=== PATIENT | male | born 1940 | race Caucasian/White ===

== ENCOUNTER 2017-04-11 09:56 | Outpatient (CLI) ==
--- NOTE | 2017-04-11 10:45 | DI ---
EXAM: Three views of the left fingers. History: Left finger trauma. Findings: No acute fracture or dislocation. Moderate to severe narrowing of the first, second and th ird MCP joints. Moderate narrowing of the interphalangeal joints. Moderate narrowing of the first c arpal metacarpal joint. There are osteophytes. Impression: No acute osseous abnormality. Arthritis.
== END 2017-04-11 09:57 | disposition home or self-care (01) ==
LOC: RAD 09:56
PROVIDERS: ATTEND Family Medicine
DX: S69.92XA Unspecified injury of left wrist, hand and finger(s), initial encounter (principal)

== ENCOUNTER 2018-06-22 07:21 | Day surgery (SDC) ==
[2018-06-22] MEDS ORDERED: DIPRIVAN 20 ML VIAL IVP ONE (08:45)
[2018-06-22] MEDS ORDERED: VERSED ONE (08:45)
[2018-06-22 15:30] VITALS: BP 132/56
--- NOTE | 2018-06-23 08:21 | OP ---
PROCEDURE: COLONOSCOPY TO THE CECUM. ENDOSCOPIST: Frederic MOORE M.D. INDICATION: CHANGE IN BOWEL HABITS. INSTRUMENT: [id number]. MEDICATION: PER ANESTHESIA. PROCEDURE: The patient was positioned for colonoscopy. The digital rectal exam was negative. The colonoscope was inserted through the anus and advanced to the cecum. The cecum was identified using the ileocecal valve and the appendiceal orifice as landmarks. The scope was slowly withdrawn through an adequately prepped colon. [place] Bowel Prep Score equals 9. Left sided diverticulosis was noted. The retroflex exam was otherwise normal. No evidence for inflammatory change, polyp or mass on his exam. The patient tolerated the procedure without immediate complication. Withdraw time 7 minutes and 37 seconds. PLAN: 1. Repeat colonoscopy for surveillance in 5 years CC: Dr. Nick ROBISON
== END 2018-06-22 10:30 | disposition home or self-care (01) ==
LOC: SURG 07:21
PROVIDERS: ATTEND Internal Medicine Gastroenterology
DX: R19.4 Change in bowel habit (principal); K57.90 Diverticulosis of intestine, part unspecified, without perforation or abscess without bleeding

== ENCOUNTER 2022-10-03 11:21 | Observation (INO) ==
[2022-10-03 11:50] LABS: BASOPHILS % (AUTO) 0.3 % (0.0-3.0); EOSINOPHILS # (AUTO) 0.1 K/ul (0.0-0.7); HEMATOCRIT 33.2 % (42.0-52.0); HEMOGLOBIN 10.9 g/dl (14.0-18.0); IMMATURE GRANULOCYTE % (AUTO) 0.4 % (0.0-5.0); LYMPHOCYTES # (AUTO) 1.5 K/uL (0.60-3.4); MEAN CORPUSCULAR HEMOGLOBIN 33.3 pg (27.0-31.0); MEAN CORPUSCULAR HGB CONC 32.8 (31.8-35.4); MEAN CORPUSCULAR VOLUME 101.5 fl (80.0-94.0); MONOCYTES # (AUTO) 0.5 K/uL (0.4-2.0); MONOCYTES % (AUTO) 7.3 (0-10); NEUTROPHILS # (AUTO) 4.9 K/ul (2.0-6.9); PLATELET COUNT 204 10^3/uL (140-440); RDW COEFFICIENT OF VARIATION 12.9 % (11.6-14.8); RED BLOOD COUNT 3.27 10^6/ul (4.70-6.10); WHITE BLOOD COUNT 7.01 K/ul (4.2-10.2)
--- NOTE | 2022-10-03 12:01 | ED.PDOC ---
General ED Provider: Dr. SANTANA JACOBS DO Chief Complaint: Fall Stated Complaint: Patient is a 82 yo M here for fall Patient arrives afebrile and vitally stable by POV with ex- Patient has 2 years of cognitive decline Patient alert and oriented to self and location onlyy, ex states this is baseline He is still driving He lives alone Ex went to see him they are still friends and noticed he had a bruise on his R forehead Patient states he tripped, he could not elaborate more He is pleasant follow ing commands Patient reports he has been passing out They deny hx of ACS or dysrhythmia Patient speaking in full sentences on room air spo2 95% Ex reports they have asked Dr. Thomas for help and he has not planned for patients dementia Patient denies chest pain or dysuria Time Seen by Provider: 10/03/22 11:23 Information Source: Patient Primary Care Provider: REINA THOMAS Nursing and Triage Documentation Reviewed and Agree: Yes Does patient meet sepsis criteria?: No System Inflammatory Response Syndrome: Not Applicable Sepsis Protocol: For patient's 13 years and over: Temp is 96.8 and below OR 101 and greater Pulse >90 BPM Resp >20/minute Acutely Altered Mental Status Are patient's symptoms suggestive of a new infection, such as: -Pneumonia -Skin, Soft Tissue -Endocarditis -UTI -Bone, Joint Infection -Implantable Device -Acute Abdominal Infection -Wound Infection -Meningitis -Blood Stream Catheter Infection -Unknown Review of Systems Review Of Systems Constitutional: Denies Chills, Fever or Weakness Eyes: Denies Blindness or Vision change Ears, Nose, Mouth, Throat: Denies Ear pain, Ear discharge or Nose pain Respiratory: Denies Cough or Short of air Cardiac: Denies Chest pain or Irregular heart rate GI: Denies Abdomen distended or Abdominal pain : Denies Burning or Discharge Musculoskeletal: Denies Back pain or Joint pain Skin: Reports Other (r forehead bruise); Denies Bruising or Rash Neurological: Reports Cognitive dysfunction; Denies Anxiety or Depressed Endocrine: Reports No symptoms Hematologic/Lymphatic: Reports No symptoms All Other Systems: Reviewed and Negative Physical Exam Physical Exam Appearance: Reports Well-appearing and Well-nourished Ill-appearing: Not Applicable Pain Distress: Not Applicable Eyes: Reports ABIEL, EOMI and Other (no hyphema) ENT: Reports Ears normal, Nose normal and Other (no beckham sign, Uvula midline, no septal hematoma, R forehead small 2x1 cm ecchymosis, no laceration, no crepitus) Neck: Supple Respiratory: Reports Airway patent and Breath sounds clear Cardiovascular: Reports RRR and Pulses normal GI/: Reports Soft and Nontender Musculoskeletal: Reports Normal strength and ROM intact; Denies No edema Skin: Reports Warm, Dry and Other (R middle finger with dried blood no obvious laceration) Neurological: Reports Sensation intact and Motor intact Psychiatric: Reports Affect appropriate and Mood appropriate Interpretation Radiology Interpretation Radiology Interpretation By: ED Physician Radiology Results: Negative Exam Interpreted: CXR Xray Comments: No pneumothorax, no gross ocnsolidaiton no pleural effusions, previous ster Radiology Interpretation By: ED Physician Radiology Results: Negative Exam Interpreted: Other (L hand XR) Xray Comments: No acute cross fracture, dislocaiton or FB EKG Interpretation Time of EKG #1: 11:38 Rate: Normal Rhythm: Sinus Ectopy: None [place]: NL ST Segment: Normal Interpretation: rate 69 no stemi, artifact from movement V4 EKG Interpretation By: ED Physician Critical Care Note Critical Care Note Total Critical Care Time (mins): 0 Course Course 10/03/22 11:45 10/03/22 11:45 Orders, Labs, Meds: Lab Review 10/03/22 10/03/22 11:45 12:28 WBC 7.01 RBC 3.27 L Hgb 10.9 L Hct 33.2 L MCV 101.5 H MCH 33.3 H MCHC 32.8 RDW Coeff of Gerber 12.9 Plt Count 204 Immature Gran % (Auto) 0.4 Neut % (Auto) 70.0 Lymph % (Auto) 21.0 [place] % (Auto) 7.3 Eos % (Auto) 1.0 Baso % (Auto) 0.3 Neut # (Auto) 4.9 Lymph # (Auto) 1.5 [place] # (Auto) 0.5 Eos # (Auto) 0.1 Baso # (Auto) 0.0 Immature Gran # (Auto) 0.0 Sodium 137.3 Potassium 3.53 Chloride 104.3 Carbon Dioxide 29.0 Anion Gap 7.53 BUN 29.4 H Creatinine 1.07 Estimated GFR (MDRD) 66.00 BUN/Creatinine Ratio 27.47 Glucose 142.9 H Calcium 8.75 Total Bilirubin 0.47 AST 52.8 ALT 30.9 Alkaline Phosphatase 74.6 Troponin I 0.021 Total Protein 7.15 Albumin 4.11 Globulin 3.04 Albumin/Globulin Ratio 1.35 D-Dimer 990.73 H Urine Color Dark yellow Urine Clarity Clear Urine pH 5.5 Ur Specific [place] >=1.030 Urine Protein Negative Urine Glucose (UA) Negative Urine Ketones Negative Urine Blood Negative Urine Nitrite Negative Urine Bilirubin Negative Urine Urobilinogen 0.2 Ur Leukocyte Esterase Negative Orders Category Date Time Status EKG-(ED ONLY) Stat CARDIO 10/03/22 11:34 Completed NPO REMINDER: IMAGING ONCE CARE 10/03/22 12:35 Active CBC W/ AUTO DIFF Stat LAB 10/03/22 11:45 Completed COMPREHENSIVE METABOLIC PANEL Stat LAB 10/03/22 11:45 Completed D-DIMER Stat LAB 10/03/22 11:45 Completed TROPONIN I Stat LAB 10/03/22 11:45 Completed UA [URINALYSIS C & S IF INDICATED] Stat LAB 10/03/22 12:[address] CHEST PE PROTOCOL Stat RADS 10/03/22 12:[address] HEAD W/O CONTRAST Stat RADS 10/03/22 11:34 Completed CXR [CHEST, 2 VIEWS PA & LAT] Stat RADS 10/03/22 11:34 Completed HAND, LEFT 3 VIEWS Stat RADS 10/03/22 11:54 Completed Vital Signs: Temp Pulse Resp BP Pulse Ox 10/03/22 11:26 98.8 F 77 20 148/73 H 95 pending labs and imaging Head ct and CXR, and L hand xr grossly normal, PE study ordered for elevated d dimer/syncope CT PE negative-concerns for scaring vs infection Dr. Thomas paged I would like to plan disposition for his patient with him MDM: Patient is a 82 yo M here for fall and cognitive decline Patient afebrile and vitally stable Hx from patient and ex chart reivew by me 3+ labs and 3 images reviewed by me Consults to Dr. Thomas and Hospitalist PAC Cowsert I am concerned for syncope, I also think patient needs help with ADL WDX: Fall, anemia, elevated d dimer, syncope, cognitive decline acute on chronic moderate complexity DDX: I considered PA, Sepsis, Stemi but these are less likely Patient sent to OBS Patient and amenable to plan Risks benefits and alternatives discussed All questions answered SDOH: Patient has PCP and specialist clinic support, will improve with risk stratification for syncope and falls this stay Medium risk for SF/Cymro syncope rule Discharge Plan Discharge Patient Disposition: PLACED OBSERVATION Discharge Problem: Bruise, Acute cognitive decline, Anemia, D-dimer, elevated, Fall, Syncope Did you review [place] RESPIRATORY SUPERVISOR for ALL controlled substances?: Not Applicable ED Provider: SANTANA JACOBS Physician Progress Note: []
[2022-10-03 12:03] LABS: ALANINE AMINOTRANSFERASE 30.9 U/L (0-50); ALBUMIN 4.11 g/dL (3.5-5.0); ALKALINE PHOSPHATASE 74.6 U/L (56-119); ASPARTATE AMINO TRANSFERASE 52.8 U/L (17-59); BILIRUBIN,TOTAL 0.47 mg/dL (0.2-1.3); BLOOD UREA NITROGEN 29.4 mg/dL (9-20); CALCIUM 8.75 mg/dL (8.4-10.2); CHLORIDE 104.3 mmol/L (98-107); CREATININE 1.07 mg/dL (0.60-1.10); GLUCOSE 142.9 mg/dL (74-106); POTASSIUM 3.53 mmol/L (3.5-5.1); SODIUM 137.3 mmol/L (134.5-145); TOTAL PROTEIN 7.15 g/dL (6.3-8.2)
--- NOTE | 2022-10-03 12:05 | DI ---
EXAM: TWO VIEW CHEST. HISTORY: Syncope. COMPARISON: None. TECHNIQUE: Frontal and lateral views of the chest. FINDINGS: Postoperative changes of prior CABG. Lungs: There is hyperexpansion of the lungs with flattening of the diaphragms.The lungs are clear wit hout consolidation or effusion. There are no suspicious nodules. There is no pneumothorax. Cardiovascular: The heart size and pulmonary vasculature is normal.. The aorta is unremarkable. [place]acey/Mediastinum: Normal. Osseous structures. Normal for age. IMPRESSION: No acute pulmonary disease. Hyperexpansion of the chest. Findings are consistent with chronic obstructive pulmonary disease.
[2022-10-03 12:14] LABS: TROPONIN I 0.021 ng/ml (0.0000-0.120)
--- NOTE | 2022-10-03 12:31 | DI ---
EXAM: LEFT HAND RADIOGRAPH (3 VIEW) TECHNIQUE: Three views. Frontal, lateral, and oblique. HISTORY: Laceration distal second finger Left hand pain. COMPARISON: None. FINDINGS: There is no fracture or dislocation. 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 Degenerative changes noted in the back carpal phalangeal joints of the first second and third fingers . There is loss of the joint space subchondral degenerative cystic change. Sclerosis of the opposin g articular surfaces is noted. Degenerative change in the first carpal-metacarpal joint. Degenerative changes present in the interphalangeal joint of the left thumb and DIP joint of the seco nd and third fingers. There is no evidence of radiopaque foreign body in the distal is second finger IMPRESSION: 1. Osteoarthritis. 2. 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
--- NOTE | 2022-10-03 12:32 | CT ---
EXAM: CT OF THE HEAD WITHOUT CONTRAST. HISTORY: Fall. Bruising to the forehead. COMPARISON: 08/18/2012 TECHNIQUE: Contiguous axial images at 5 mm intervals were obtained from the base of the skull to the vertex of the calvarium. No contrast was given. FINDINGS: Extra-axial spaces: The CSF contiaing spaces are diffusely enlarged consistent with atrophy.There ar e no extraaxial fluid collections. Hemorrhage: None Cerebral Parenchyma: There are hypodensities in the periventricular white matter and deep white matte r. These findings are non-specific but can be seen with chronic ischemic changes from small vessel d isease.Orozco-white differentiation is normal. Cerebellum: Mild atrophic changes.. Masses/Mass effect: None. There is no midline shift. Vasculature: Calcifications are seen in the carotid and vertebral arteries. Osseus Structures: Normal. Soft tissues/Sinuses: Normal. IMPRESSION: 1. Chronic age related changes. 2. No acute intracranial hemorrhage. All CT scans are performed using dose optimization techniques as appropriate to the performed exam an d include at least one of the following: Automated exposure control, adjustment of the mA and/or kV according t o size, and the use of iterative reconstruction technique.
[2022-10-03 12:34] LABS: BILIRUBIN,URINE Negative (NEGATIVE); CLARITY,URINE Clear (CLEAR); COLOR,URINE DARK YELLOW (YELLOW); GLUCOSE, URINE (UA) Negative (NEGATIVE); KETONES,URINE Negative (NEGATIVE); LEUKOCYTE ESTERASE ,URINE Negative (NEGATIVE); NITRITE,URINE Negative (NEGATIVE); PH,URINE 5.5 (5-9); PROTEIN,URINE Negative (NEGATIVE); URINE, BLOOD Negative (NEGATIVE); UROBILINOGEN,URINE 0.2 (0.2)
--- NOTE | 2022-10-03 14:07 | CT ---
CTA OF THE CHEST WITH CONTRAST HISTORY: Elevated D-dimer. Syncope. TECHNIQUE: Precontrast images were obtained for timing of the contrast bolus. Following administrat ion of iodinated IV contrast, axial tomographic sections were obtained from the neck base through the lung bases. Coronal and 3D coronal MIP reformats were performed. Automated CT dose reduction techn ique was utilized. COMPARISON: None. FINDINGS: LINES AND DEVICES: None. GREAT VESSELS: No gross pulmonary embolism. No thoracic aortic aneurysm or dissection. There are hea vy atheromatous calcifications of the thoracic aorta. LYMPH NODES: Normal. MEDIASTINUM: Normal heart size. No pericardial effusion. Sternotomy and CABG changes with CASTRO. AIRWAYS AND LUNGS: Clear airways. No infiltrate or consolidation. There is scattered subpleural inter stitial thickening in the bilateral mid-lungs posteriorly and laterally, nonspecific. Areas of centr ilobular interstitial thickening noted in the lung apices bilaterally which may represent scarring ve rsus minimal infectious or inflammatory infiltrate. PLEURA: Normal. No effusion. No pneumothorax. CHEST WALL/BREAST: Normal. UPPER ABDOMEN: Normal, limited evaluation. BONES: No acute findings. IMPRESSION: 1. No acute findings. Negative for acute pulmonary embolism. 2. Nonacute ancillary findings as above, see above report. All CT scans are performed using dose optimization techniques as appropriate to the performed exam an d include at least one of the following: Automated exposure control, adjustment of the mA and/or kV according t o size, and the use of iterative reconstruction technique.
[2022-10-03] MEDS ORDERED: TYLENOL PO PRN (15:03)
--- NOTE | 2022-10-03 15:12 | PCM ---
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 Patient states that he was sitting and then stood up to go walk and his "legs gave out on him" and he fell hitting his head. He does not believe that he lost consciousness this morning. He did also have a fall last week with a similar scenario. At one point he states that he may have lost consciousness for a few seconds but he just is not sure. He denies any chest pain or dizziness when these events occur. He does not take a blood thin ner. His whom he is from came to visit and noticed that he had a contusion on his forehead and encouraged him to get evaluated. He has been having memory issues for the past 2 years. The patient admits this and is aware that he has trouble with his memory. It is very frustrating for him. He does not currently take anything for it. He is oriented to person place and time but does have trouble recalling specifics about recent and past events. He does sometimes repeat himself as well within a few minutes. His goals are to remain at home and he is reluctant but open to discussing home health. [facility]. Case Discussed With Case Discussed With: Patient's case was discussed with the ER Physicians, Dr. Leyva. [facility] Medical History Angina pectoris I20.9 - Angina pectoris, unspecified (ICD-10) Back pain M54.9 - Dorsalgia, unspecified (ICD-10) BPH (benign prostatic hyperplasia) N40.0 - Benign prostatic hyperplasia without lower urinary tract symptoms (ICD-10) Cognitive and behavioral changes R41.89 - Other symptoms and signs involving cognitive functions and awareness (ICD-10) R46.89 - Other symptoms and signs involving appearance and behavior (ICD-10) GERD (gastroesophageal reflux disease) K21.9 - Gastro-esophageal reflux disease without esophagitis (ICD-10) Hypertension I10 - Essential (primary) hypertension (ICD-10) Family History FATHER Hypertension Social History Smoking and tobacco status: Former smoker Tobacco: How many years used: 40 Second hand smoke exposure: No Alcohol intake: former Substance use type: does not use and opiates Counseling given: No (Active script for opiates) Allergies Allergies Allergy/AdvReac Type Severity Reaction Status Date / Time No Known Allergies Allergy Unverified 10/03/22 12:17 Current Medications Home Medications ascorbic acid (vitamin C) 1,000 mg tablet 1,000 mg PO DAILY 12/04/15 [History Confirmed 10/03/22 Last Taken 06/18/18 08:00] aspirin 81 mg tablet,delayed release (Ecotrin Low Strength) 81 mg PO DAILY 12/04/15 [History Confirmed 10/03/22 Last Taken 06/18/18 08:00] atorvastatin 20 mg tablet (Lipitor) 20 mg PO BEDTIME 12/04/15 [History Confirmed 10/03/22 Last Taken 06/18/18 08:00] chlorthalidone 25 mg tablet 25 mg PO DAILY 12/04/15 [History Confirmed 10/03/22 Last Taken 06/18/18 08:00] enalapril maleate 20 mg tablet 20 mg PO BID 12/04/15 [History Confirmed 10/03/22 Last Taken 06/18/18 08:00] hydrocodone 5 mg-acetaminophen 325 mg tablet 1 ea PO DAILY 12/04/15 [History Confirmed 10/03/22 Last Taken 12/01/15] isosorbide mononitrate 30 mg tablet,extended release 24 hr 60 mg PO DAILY 12/04/15 [History Confirmed 10/03/22 Last Taken 06/18/18 08:00] metoprolol succinate 50 mg tablet,extended release 24 hr 50 mg PO BID 12/04/15 [History Confirmed 10/03/22 Last Taken 06/18/18 08:00] multivitamin 1 cap PO DAILY 12/04/15 [History Confirmed 10/03/22 Last Taken 06/18/18 07:00] nitroglycerin 0.4 mg sublingual tablet (Nitrostat) 0.4 mg sublingual Q5M PRN chest pain 12/04/15 [History Confirmed 10/03/22 Last Taken 06/18/18 07:00] omeprazole 20 mg capsule,delayed release 20 mg PO QDAC 12/04/15 [History Confirmed 10/03/22 Last Taken 06/18/18 06:00] tamsulosin 0.4 mg capsule 0.4 mg PO DAILY 12/04/15 [History Confirmed 10/03/22 Last Taken 06/18/18 08:00] Home Acetaminophen (Acetaminophen 325 Mg Tablet) 650 mg PO Q4H PRN PRN Reason: Mild Pain Aspirin (Aspirin 81 Mg Tablet.) 81 mg PO DAILY [facility] Atorvastatin Calcium (Atorvastatin Calcium 20 Mg Tablet) 20 mg PO BEDTIME [facility] Chlorthalidone (Chlorthalidone 25 Mg Tablet) 25 mg PO DAILY [facility] Donepezil HCl (Donepezil Hcl 10 Mg Tablet) 5 mg PO DAILY [facility] Last Admin: 10/03/22 16:45 Dose: 5 mg Enalapril Maleate (Enalapril Maleate 20 Mg Tablet) 20 mg PO BID [facility] Enoxaparin Sodium (Enoxaparin Sodium 40 Mg/0.4 Ml Syr) 40 mg SUBCUT DAILY [facility] Isosorbide Mononitrate (Isosorbide Mononitrate 30 Mg Tab.Er.24h) 60 mg PO DAILY [facility] Metoprolol Succinate (Metoprolol Succinate 50 Mg Tab.Er.24h) 50 mg PO BID [facility] Omeprazole (Omeprazole 20 Mg Capsule.) 20 mg PO QDAC [facility] Tamsulosin HCl (Tamsulosin Hcl 0.4 Mg Cap.Er.24h) 0.4 mg PO DAILY [facility] Review of Systems Constitutional: Denies Fever, Fatigue, Chills or Weakness Head: Reports Normocephalic; Denies Atraumatic (Right forehead contusion) Eyes: Denies Vision Changes Ears: Denies Pain Nose: Denies Post Nasal Drip or Congestion Mouth: Denies Sores Throat: Denies Sore Throat or Difficulty Swallowing Cardiovascular: Denies Chest pain, Chest Pressure or Edema Respiratory: Denies Cough or Shortness of air Gastrointestinal: Denies Nausea, Vomiting, Diarrhea or Abdominal pain Genitourinary: Denies Dysuria or Hematuria Dermatologic: Denies Rashes Neurological: Reports Memory Loss, Problems with walking and Other (+near syncope, multiple falls ); Denies Headache or Dizziness Psychiatric: Denies Depression, Anxiety or Suicidal Physical examination Most Recent Vital Signs: Most Recent Vital Signs Temperature 98.8 F 10/03/22 11:26 Temperature Source Infrared 10/03/22 11:26 Pulse Rate 77 10/03/22 11:26 Respiratory Rate 20 10/03/22 11:26 Blood Pressure 148/73 H 10/03/22 11:26 O2 Sat by Pulse Oximetry 95 10/03/22 11:26 Height 6 ft 10/03/22 11:26 Weight 158 lb 6 oz 10/03/22 11:26 Appearance: Positive Well-appearing, Well-nourished, No Apparent Distress and Alert and Oriented x3 Skin: Positive [place], Warm and Good Turgor; Negative Rashes HEENT: Positive Normocephalic and Oral Mucous Moist; Negative Atraumatic (+Right forehead contusion noted, no laceration. ) Neck: Positive Supple and Midline Trachea Chest/Lungs: Positive Symmetrical With Equal Breath Sounds and Clear to Auscultation Bilaterally; Negative Rales, Rhonci or Wheezes Heart: Positive RRR GI/: Positive Soft, Nontender, Bowel Sounds Normal and No Distention Musculoskeletal: Positive Other (+ Generalized weakness of upper and lower ext. ) Extremities: Positive Signs of Trauma (+Left index finger injury, freshly wrapped in gauze. Right forehead contusion. ) Neurological: Positive Cranial Nerves Intact, Alert and Oriented Psychiatric: Positive Oriented x4, Appropriate Mood and Appropriate Affect; Negative Good Short-Term Recall or Good Long-Term Recall Additional Findings: Patient is able to answer orientation questions appropriately, however, he has difficulty recalling recent and past events. He is aware he is having memory issues. Labs This Visit Labs This Visit: Labs This Visit 10/03/22 10/03/22 11:45 12:28 WBC 7.01 RBC 3.27 L Hgb 10.9 L Hct 33.2 L MCV 101.5 H MCH 33.3 H MCHC 32.8 RDW Coeff of Gerber 12.9 Plt Count 204 Immature Gran % (Auto) 0.4 Neut % (Auto) 70.0 Lymph % (Auto) 21.0 Amelia % (Auto) 7.3 Eos % (Auto) 1.0 Baso % (Auto) 0.3 Neut # (Auto) 4.9 Lymph # (Auto) 1.5 Amelia # (Auto) 0.5 Eos # (Auto) 0.1 Baso # (Auto) 0.0 Immature Gran # (Auto) 0.0 Sodium 137.3 Potassium 3.53 Chloride 104.3 Carbon Dioxide 29.0 Anion Gap 7.53 BUN 29.4 H Creatinine 1.07 Estimated GFR (MDRD) 66.00 BUN/Creatinine Ratio 27.47 Glucose 142.9 H Calcium 8.75 Total Bilirubin 0.47 AST 52.8 ALT 30.9 Alkaline Phosphatase 74.6 Troponin I 0.021 Total Protein 7.15 Albumin 4.11 Globulin 3.04 Albumin/Globulin Ratio 1.35 D-Dimer 990.73 H Urine Color Dark yellow Urine Clarity Clear Urine pH 5.5 Ur Specific Melba >=1.030 Urine Protein Negative Urine Glucose (UA) Negative Urine Ketones Negative Urine Blood Negative Urine Nitrite Negative Urine Bilirubin Negative Urine Urobilinogen 0.2 Ur Leukocyte Esterase Negative Imaging Imaging: EXAM: TWO VIEW CHEST. HISTORY: Syncope. COMPARISON: None. TECHNIQUE: Frontal and lateral views of the chest. FINDINGS: Postoperative changes of prior CABG. Lungs: There is hyperexpansion of the lungs with flattening of the diaphragms.The lungs are clear without consolidation or effusion. There are no suspicious nodules. There is no pneumothorax. Cardiovascular: The heart size and pulmonary vasculature is normal.. The aorta is unremarkable. [place]acey/Mediastinum: Normal. Osseous structures. Normal for age. IMPRESSION: No acute pulmonary disease. Hyperexpansion of the chest. Findings are consistent with chronic obstructive pulmonary disease. EXAM: LEFT HAND RADIOGRAPH (3 VIEW) TECHNIQUE: Three views. Frontal, lateral, and oblique. HISTORY: Laceration distal second finger Left hand pain. COMPARISON: None. FINDINGS: There is no fracture or dislocation. 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 Degenerative changes noted in the back carpal phalangeal joints of the first second and third fingers. There is loss of the joint space subchondral degenerative cystic change. Sclerosis of the opposing articular surfaces is noted. Degenerative change in the first carpal-metacarpal joint. Degenerative changes present in the interphalangeal joint of the left thumb and DIP joint of the second and third fingers. There is no evidence of radiopaque foreign body in the distal is second finger IMPRESSION: 1. Osteoarthritis. 2. 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 Syncope. TECHNIQUE: Precontrast images were obtained for timing of the contrast bolus. Following administration of iodinated IV contrast, axial tomographic sections were obtained from the neck base through the lung bases. Coronal and 3D coronal MIP reformats were performed. Automated CT dose reduction technique was utilized. COMPARISON: None. FINDINGS: LINES AND DEVICES: None. GREAT VESSELS: No gross pulmonary embolism. No thoracic aortic aneurysm or dissection. There are heavy atheromatous calcifications of the thoracic aorta. LYMPH NODES: Normal. MEDIASTINUM: Normal heart size. No pericardial effusion. Sternotomy and CABG changes with CASTRO. AIRWAYS AND LUNGS: Clear airways. No infiltrate or consolidation. There is scattered subpleural interstitial thickening in the bilateral mid-lungs posteriorly and laterally, nonspecific. Areas of centrilobular interstitial thickening noted in the lung apices bilaterally which may represent scarring versus minimal infectious or inflammatory infiltrate. PLEURA: Normal. No effusion. No pneumothorax. CHEST WALL/BREAST: Normal. UPPER ABDOMEN: Normal, limited evaluation. BONES: No acute findings. IMPRESSION: 1. No acute findings. Negative for acute pulmonary embolism. 2. Nonacute ancillary findings as above, see above report. EXAM: CT OF THE HEAD WITHOUT CONTRAST. HISTORY: Fall. Bruising to the forehead. COMPARISON: 08/18/2012 TECHNIQUE: Contiguous axial images at 5 mm intervals were obtained from the ba se of the skull to the vertex of the calvarium. No contrast was given. FINDINGS: Extra-axial spaces: The CSF contiaing spaces are diffusely enlarged consistent with atrophy.There are no extraaxial fluid collections. Hemorrhage: None Cerebral Parenchyma: There are hypodensities in the periventricular white matter and deep white matter. These findings are non-specific but can be seen with ch ronic ischemic changes from small vessel disease.Orozco-white differentiation is normal. Cerebellum: Mild atrophic changes.. Masses/Mass effect: None. There is no midline shift. Vasculature: Calcifications are seen in the carotid and vertebral arteries. Osseus Structures: Normal. Soft tissues/Sinuses: Normal. IMPRESSION: 1. Chronic age related changes. 2. No acute intracranial hemorrhage. Review Statement Review Statement: I have independently reviewed and interpreted the labs/EKGs/imaging that were ordered by the ER provider. I have reviewed all outside records that are available currently in our EMR including imaging/notes/labs from previous visits. Plan Plan: 1. Near syncope with multiple falls - Echo, carotid US, tele, check orthostats. Fall precautions. PT/OT. 2. Cognitive decline - Over past two years, will start aricept 5 mg daily. 3. Coronary artery disease - Continue home medications 4. Hypertension - Continue home meds 5. BPH - Continue home flomax 6. GERD - Continue home prilosec. DVT Prophylaxis: Lovenox Time Spent: Greater than 80 minutes spent with patient, 50% of the time spent with this patient was devoted to counseling and coordination of care. [facility] minutes spent discussing advance care planning. FULL CODE Admit to: Obs Discussed Plan of Care with Dr. Christian Wells. Medications Medication Orders: Medications Ordered Category Date Time Status Acetaminophen [Tylenol] Meds 10/03/22 15:03 Ordered 650 mg PO Q4H PRN Donepezil HCl [Aricept] Meds 10/03/22 16:00 Ordered 5 mg PO DAILY Enoxaparin Sodium [Lovenox] Meds 10/04/22 09:00 Ordered 40 mg SUBCUT DAILY
[2022-10-03 16:00] VITALS: BMI 21.6
--- NOTE | 2022-10-03 16:12 | US ---
EXAMINATION: CAROTID DOPPLER ULTRASOUND HISTORY: Near syncope. COMPARISON: None. TECHNIQUE: Multiple sonographic images were obtained of the bilateral carotid vasculature using hawk scale and color/spectral Doppler analysis. FINDINGS: Plaque distribution: Scattered echogenic plaque is seen throughout the common and internal carotid a rteries. Mild narrowing. Arterial velocities measured in centimeters per second. Right common carotid artery peak systolic velocity: 56 Right internal carotid artery peak systolic velocity: 108 Right internal carotid artery end diastolic velocity: 18 Right ICA/CCA ratio: 1.9 Right external carotid artery peak systolic velocity: 98 Left common carotid artery peak systolic velocity: 64 Left internal carotid artery peak systolic velocity: 91 Left internal carotid artery end diastolic velocity: 14 Left ICA/CCA ratio: 1.4 Left external carotid artery peak systolic velocity: 290 Vertebrals: - Right: Antegrade flow with normal waveform. - Left: Antegrade flow with normal waveform. Society of Radiologists in Ultrasound (SRU) consensus statement (Radiology 2003; 229:340-346. DOI 10 .[id number]/radiol.[id number]) was used to estimate internal carotid artery stenosis. IMPRESSION: 1. Mild, less than 50% stenosis of the right internal carotid artery. 2. Mild, less than 50% stenosis of the left internal carotid artery. 3. Right Vertebral Artery: Antegrade. 4. Left Vertebral Artery: Antegrade. 5. Increased velocity in the left external carotid artery suggestive of stenosis.
[2022-10-03] MEDS: ARICEPT PO SCH (16:45)
[2022-10-03] MEDS: VASOTEC PO SCH (20:48)
[2022-10-03] MEDS ORDERED: LIPITOR PO SCH (21:00)
[2022-10-03] MEDS ORDERED: TOPROL XL PO SCH (21:00)
[2022-10-04 01:49] VITALS: RESP 16; TEMP 97.9
[2022-10-04 05:32] LABS: BASOPHILS % (AUTO) 0.3 % (0.0-3.0); EOSINOPHILS # (AUTO) 0.1 K/ul (0.0-0.7); EOSINOPHILS % (AUTO) 1.5 % (0.0-7.0); HEMATOCRIT 35.4 % (42.0-52.0); IMMATURE GRANULOCYTE % (AUTO) 0.3 % (0.0-5.0); LYMPHOCYTES # (AUTO) 1.3 K/uL (0.60-3.4); LYMPHOCYTES % (AUTO) 17.9 (10.0-50.0); MEAN CORPUSCULAR HEMOGLOBIN 34.3 pg (27.0-31.0); MEAN CORPUSCULAR HGB CONC 33.9 (31.8-35.4); MEAN CORPUSCULAR VOLUME 101.1 fl (80.0-94.0); MONOCYTES # (AUTO) 0.6 K/uL (0.4-2.0); MONOCYTES % (AUTO) 8.4 (0-10); NEUTROPHILS # (AUTO) 5.3 K/ul (2.0-6.9); NEUTROPHILS % (AUTO) 71.6 % (42.2-75.2); PLATELET COUNT 215 10^3/uL (140-440); RDW COEFFICIENT OF VARIATION 12.6 % (11.6-14.8); WHITE BLOOD COUNT 7.41 K/ul (4.2-10.2)
[2022-10-04 05:48] LABS: ALANINE AMINOTRANSFERASE 28.3 U/L (0-50); ALBUMIN 3.68 g/dL (3.5-5.0); ALKALINE PHOSPHATASE 70.3 U/L (56-119); ASPARTATE AMINO TRANSFERASE 47.6 U/L (17-59); BILIRUBIN,TOTAL 0.57 mg/dL (0.2-1.3); BLOOD UREA NITROGEN 21.6 mg/dL (9-20); CALCIUM 8.47 mg/dL (8.4-10.2); CARBON DIOXIDE 32.7 mmol/L (22-30.0); CHLORIDE 103.8 mmol/L (98-107); CREATININE 0.94 mg/dL (0.60-1.10); GLUCOSE 96.6 mg/dL (74-106); POTASSIUM 3.56 mmol/L (3.5-5.1); SODIUM 136.4 mmol/L (134.5-145); TOTAL PROTEIN 6.55 g/dL (6.3-8.2)
[2022-10-04] MEDS ORDERED: PRILOSEC PO SCH (06:30)
[2022-10-04] MEDS ORDERED: ASPIRIN EC PO SCH (08:30)
[2022-10-04] MEDS ORDERED: LACTATED RINGERS 1,000 ML IV SCH ×2 (09:00)
[2022-10-04] MEDS ORDERED: FLOMAX PO SCH (09:00)
[2022-10-04] MEDS ORDERED: IMDUR PO SCH (09:00)
[2022-10-04] MEDS ORDERED: CHLORTHALIDONE PO SCH (09:00)
[2022-10-04] MEDS ORDERED: TOPROL XL PO SCH ×2 (09:00)
[2022-10-04] MEDS: LOVENOX SUBCUT SCH ×2 (09:02→10:01)
[2022-10-04] MEDS: ARICEPT PO SCH (09:03)
[2022-10-04] MEDS: VASOTEC PO SCH (09:03)
--- NOTE | 2022-10-04 11:03 | DCSUM ---
Admission Date Admission Date: 10/03/22 Discharge Date Discharge Date: 10/04/22 Admission Diagnosis Admission Diagnosis: 1. Near Syncope Discharge Diagnosis Discharge Diagnosis: 1. Syncope with multiple falls 2. Cognitive decline 3. Coronary artery disease s/p CABG 4. Hypertension 5. BPH 6. GERD 7. Chronic anemia 8. [facility] Provider Hospital Provider: PETR DE LEON PA-C, [facility] Primary Care Physician Primary Care Physician: REINA THOMAS Summary of History and Physical Summary of History and Physical: Patient is an 82-year-old male from home with past medical history of heart disease status post 5 vessel CABG, hypertension, GERD, BPH who presented to the ER for a fall this morning. Patient states that he was sitting and then stood up to go walk and his "legs gave out on him" and he fell hitting his head. He does not believe that he lost consciousness this morning. He did also have a fall last week with a similar scenario. At one point he states that he may have lost consciousness for a few seconds but he just is not sure. He denies any chest pain or dizziness when these events occur. He does not take a blood thinner. His whom he is from came to visit and noticed that he had a contusion on his forehead and encouraged him to get evaluated. He has been having memory issues for the past 2 years. The patient admits this and is aware that he has trouble with his memory. It is very frustrating for him. He does not currently take anything for it. He is oriented to person place and time but does have trouble recalling specifics about recent and past events. He does sometimes repeat himself as well within a few minutes. His goals are to remain at home and he is reluctant but open to discussing home health. In the ER patient had a CT head which was negative. D-dimer was elevated and a CTA of his chest was performed which was negative for PE or acute findings. Patient admitted to [facility] for completion of near syncope work-up. 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 He refused at that time to come into the hospital. Patient was noted to have mild bradycardia from 46- 60 overnight. He is on a beta-rachel metoprolol 50 twice a day. We will decrease this to 25 twice a day to improve his heart rate as it could be a risk factor for him falling. He was also noted to be mildly orthostatic. Fluids were given and this improved. He worked with therapy and did really well. has concerns about his memory. We did discuss starting Aricept and we will go ahead and start 5 mg daily. Discussed the expectations with this medication. It could be increased in a few weeks by PCP if it is thought to be beneficial. The is going to bring him home with her and their daughter is also coming to stay for the next week or so. Home health was offered but they declined at this time. They understand that his PCP could help arrange this if needed. is POA and she is in agreement with this plan of action. Echo was performed with no acute changes from prior. Continue follow-up with outpatient specialist as scheduled. Follow-up with PCP within 1 week. Patient is discharged with Holter monitor, results to PCP. Of note patient is still driving. Discussed with him that this is unfortunately dangerous for him and others. We encouraged him to keep his independence but this is a safety concern. He is understanding. has also gotten his keys and will not let him have them. Appearance: Pleasant, No Apparent Distress, Alert, Well-appearing and Well- nourished HEENT: MMM CVS: No Murmur, No Rubs and No Gallop Abdomen: Soft, Non-Tender and No Distention Respiratory: No Dyspnea Extremities: No Edema Vital Signs: Most Recent Vital Signs Temperature 97.9 F 10/04/22 06:00 Temperature Source Temporal Artery Scan 10/04/22 06:00 Temperature Source Infrared 10/03/22 11:26 Pulse Rate 62 10/04/22 07:32 Respiratory Rate 16 10/04/22 07:32 Blood Pressure 114/58 L 10/04/22 07:30 Blood Pressure Mean 79 10/04/22 06:00 Blood Pressure Left Arm 158/60 10/03/22 15:35 Blood Pressure Location Left Arm 10/04/22 07:30 Blood Pressure Position Standing 10/04/22 07:30 O2 Sat by Pulse Oximetry 99 10/04/22 06:00 Oxygen Delivery Method Room Air 10/04/22 07:32 Height 6 ft 10/03/22 15:35 Weight 159 lb 7 oz 10/03/22 15:35 Telemetry Type Remote Telemetry 10/04/22 07:00 Telemetry Monitoring Continues 10/04/22 07:00 Telemetry Heart Rate 57 L 10/04/22 07:00 EKG [place] Interval 0.18 10/04/22 07:00 EKG QRS Interval 0.08 10/04/22 07:00 Telemetry Strip Reading Sinus Bradycardia 10/04/22 07:00 Imaging: EXAM: TWO VIEW CHEST. HISTORY: Syncope. COMPARISON: None. TECHNIQUE: Frontal and lateral views of the chest. FINDINGS: Postoperative changes of prior CABG. Lungs: There is hyperexpansion of the lungs with flattening of the diaphragms.The lungs are clear without consolidation or effusion. There are no suspicious nodules. There is no pneumothorax. Cardiovascular: The heart size and pulmonary vasculature is normal.. The aorta is unremarkable. [place]acey/Mediastinum: Normal. Osseous structures. Normal for age. IMPRESSION: No acute pulmonary disease. Hyperexpansion of the chest. Findings are consistent with chronic obstructive pulmonary disease. EXAM: LEFT HAND RADIOGRAPH (3 VIEW) TECHNIQUE: Three views. Frontal, lateral, and oblique. HISTORY: Laceration distal second finger Left hand pain. COMPARISON: None. FINDINGS: There is no fracture or dislocation. 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 Degenerative changes noted in the back carpal phalangeal joints of the first second and third fingers. There is loss of the joint space subchondral degenerative cystic change. Sclerosis of the opposing articular surfaces is noted. Degenerative change in the first carpal-metacarpal joint. Degenerative changes present in the interphalangeal joint of the left thumb and DIP joint of the second and third fingers. There is no evidence of radiopaque foreign body in the distal is second finger IMPRESSION: 1. Osteoarthritis. 2. 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 Syncope. TECHNIQUE: Precontrast images were obtained for timing of the contrast bolus. Following administration of iodinated IV contrast, axial tomographic sections were obtained from the neck base through the lung bases. Coronal and 3D coronal MIP reformats were performed. Automated CT dose reduction technique was utilized. COMPARISON: None. FINDINGS: LINES AND DEVICES: None. GREAT VESSELS: No gross pulmonary embolism. No thoracic aortic aneurysm or dissection. There are heavy atheromatous calcifications of the thoracic aorta. LYMPH NODES: Normal. MEDIASTINUM: Normal heart size. No pericardial effusion. Sternotomy and CABG changes with CASTRO. AIRWAYS AND LUNGS: Clear airways. No infiltrate or consolidation. There is scattered subpleural interstitial thickening in the bilateral mid-lungs posteriorly and laterally, nonspecific. Areas of centrilobular interstitial thickening noted in the lung apices bilaterally which may represent scarring versus minimal infectious or inflammatory infiltrate. PLEURA: Normal. No effusion. No pneumothorax. CHEST WALL/BREAST: Normal. UPPER ABDOMEN: Normal, limited evaluation. BONES: No acute findings. IMPRESSION: 1. No acute findings. Negative for acute pulmonary embolism. 2. Nonacute ancillary findings as above, see above report. EXAM: CT OF THE HEAD WITHOUT CONTRAST. HISTORY: Fall. Bruising to the forehead. COMPARISON: 08/18/2012 TECHNIQUE: Contiguous axial images at 5 mm intervals were obtained from the base of the skull to the vertex of the calvarium. No contrast was given. FINDINGS: Extra-axial spaces: The CSF contiaing spaces are diffusely enlarged consistent with atrophy.There are no extraaxial fluid collections. Hemorrhage: None Cerebral Parenchyma: There are hypodensities in the periventricular white matter and deep white matter. These findings are non-specific but can be seen with chronic ischemic changes from small vessel disease.Orozco-white differentiation is normal. Cerebellum: Mild atrophic changes.. Masses/Mass effect: None. There is no midline shift. Vasculature: Calcifications are seen in the carotid and vertebral arteries. Osseus Structures: Normal. Soft tissues/Sinuses: Normal. IMPRESSION: 1. Chronic age related changes. 2. No acute intracranial hemorrhage. Date of Exam:10/04/2022 Ordering Physician:HOSPITALIST/ PCP-DR. THOMASRoom #:[id number] Reason for Echo:SYNCOPE, FALLS, WEAKNESS, HX CAD M-Mode Normal Adult Results LV Dimensions Normal Adult Results AoV Opening excursions >1.6 >1.6 LVEDD-base- 3.5-5.8 5.2 Ao root dimensions 2.0-3.7 3.7 LVESD-base- 3.1-4.6 L. Atrium dimensions 1.9-3.8 4.5 Post. Wall thickness 0.8-1.1 1.1 IV septum (thickness) 0.7-1.2 1.1 Post. Wall excursion 0.72-1.3 NORMAL Septal motion 0.2 Systolic motion R. Ventricular cavity 1.5-2.0 NORMAL LVEF 60% 45% Paradoxical septal wall motion NORMAL 2-D :2-D M Mode Echocardiogram was performed using apical four chamber and left parasternal long and short axis views. Mitral, tricuspid and aortic valves appear to be normal. Contractility of the left ventricle seems to be normal, so is the cavity size. ENLARGED LEFT ATRIAL CAVITY SIZE. Aortic root appears to be normal. There is no pericardial effusion. There is no thrombus noted in the left ventricle or left atrial cavity. HYPOKINETIC SEPTAL WALL COLOR FLOW:MILD MITRAL REGURGITATION M-MODE: MV: NORMAL AV: NORMAL TV: NORMAL PV: CHAMBER SIZE: ENLARGED LEFT ATRIAL CAVITY WALL MOTION:HYPOKINETIC SEPTAL WALL PERICARDIUM: NORMAL INTERPRETATION: 1.BORDERLINE LEFT VENTRICLE HYPERTROPHY WITH ENLARGED LEFT ATRIAL CAVITY 2. HYPOKINETIC SEPTAL WALL WITH EJECTION FRACTION 45% 3. VALVES NORMAL BY 2 "D" "M" MODE Lab Results Last 24 Hours: 10/04/22 10/04/22 10/03/22 09:13 05:28 12:28 WBC 7.41 RBC 3.50 L Hgb 12.0 L Hct 35.4 L MCV 101.1 H MCH 34.3 H MCHC 33.9 RDW Coeff of Gerber 12.6 Plt Count 215 Immature Gran % (Auto) 0.3 Neut % (Auto) 71.6 Lymph % (Auto) 17.9 [place] % (Auto) 8.4 Eos % (Auto) 1.5 Baso % (Auto) 0.3 Neut # (Auto) 5.3 Lymph # (Auto) 1.3 [place] # (Auto) 0.6 Eos # (Auto) 0.1 Baso # (Auto) 0.0 Immature Gran # (Auto) 0.0 Sodium 136.4 Potassium 3.56 Chloride 103.8 Carbon Dioxide 32.7 H Anion Gap 3.46 BUN 21.6 H Creatinine 0.94 Estimated GFR (MDRD) 77.00 BUN/Creatinine Ratio 22.97 Glucose 96.6 Calcium 8.47 Total Bilirubin 0.57 AST 47.6 ALT 28.3 Alkaline Phosphatase 70.3 Troponin I Total Protein 6.55 Albumin 3.68 Globulin 2.87 Albumin/Globulin Ratio 1.28 Vitamin B12 714 Folate > 20.00 D-Dimer Urine Color Dark yellow Urine Clarity Clear Urine pH 5.5 Ur Specific [place] >=1.030 Urine Protein Negative Urine Glucose (UA) Negative Urine Ketones Negative Urine Blood Negative Urine Nitrite Negative Urine Bilirubin Negative Urine Urobilinogen 0.2 Ur Leukocyte Esterase Negative 10/03/22 11:45 WBC 7.01 RBC 3.27 L Hgb 10.9 L Hct 33.2 L MCV 101.5 H MCH 33.3 H MCHC 32.8 RDW Coeff of Gerber 12.9 Plt Count 204 Immature Gran % (Auto) 0.4 Neut % (Auto) 70.0 Lymph % (Auto) 21.0 [place] % (Auto) 7.3 Eos % (Auto) 1.0 Baso % (Auto) 0.3 Neut # (Auto) 4.9 Lymph # (Auto) 1.5 [place] # (Auto) 0.5 Eos # (Auto) 0.1 Baso # (Auto) 0.0 Immature Gran # (Auto) 0.0 Sodium 137.3 Potassium 3.53 Chloride 104.3 Carbon Dioxide 29.0 Anion Gap 7.53 BUN 29.4 H Creatinine 1.07 Estimated GFR (MDRD) 66.00 BUN/Creatinine Ratio 27.47 Glucose 142.9 H Calcium 8.75 Total Bilirubin 0.47 AST 52.8 ALT 30.9 Alkaline Phosphatase 74.6 Troponin I 0.021 Total Protein 7.15 Albumin 4.11 Globulin 3.04 Albumin/Globulin Ratio 1.35 Vitamin B12 Folate D-Dimer 990.73 H Urine Color Urine Clarity Urine pH Ur Specific [place] Urine Protein Urine Glucose (UA) Urine Ketones Urine Blood Urine Nitrite Urine Bilirubin Urine Urobilinogen Ur Leukocyte Esterase Discharge Instructions Discharge Planning: Discharge Planning > [address] Christian Wells. Discharge Medications: Medications at Discharge (Home Meds & RX) ascorbic acid (vitamin C) 1,000 mg tablet 1,000 mg PO DAILY 12/04/15 aspirin 81 mg tablet,delayed release (Ecotrin Low Strength) 81 mg PO DAILY 12/04/15 atorvastatin 20 mg tablet (Lipitor) 20 mg PO BEDTIME 12/04/15 chlorthalidone 25 mg tablet 25 mg PO DAILY 12/04/15 enalapril maleate 20 mg tablet 20 mg PO BID 12/04/15 hydrocodone 5 mg-acetaminophen 325 mg tablet 1 ea PO DAILY 12/04/15 isosorbide mononitrate 30 mg tablet,extended release 24 hr 60 mg PO DAILY 12/04/15 multivitamin 1 cap PO DAILY 12/04/15 nitroglycerin 0.4 mg sublingual tablet (Nitrostat) 0.4 mg sublingual Q5M PRN chest pain 12/04/15 omeprazole 20 mg capsule,delayed release 20 mg PO QDAC 12/04/15 tamsulosin 0.4 mg capsule 0.4 mg PO DAILY 12/04/15 metoprolol succinate 50 mg tablet,extended release 24 hr 25 mg PO BID #30 tabs 10/04/22 aricept 5 mg PO daily #30 tabs Discharge Plan Discharge Discharge Orders: Discharge Patient (ONCE); Ordered 10/04/22 Ordered By: PETR DE LEON Activity Restrictions/Additional Instructions: DISCHARGE TO HOME DX: SYNCOPE, RECURRENT FALLS ACTIVITY: TOLERATED, FALL PRECAUTIONS DIET: HEART HEALTHY MEDICATION CHANGES - METOPROLOL DOSE DECREASED YOU HAVE A FOLLOW UP APPOINTMENT WITH DR. THOMAS ON October AT 10:30AM. SHOULD YOU HAVE ANY QUESTIONS OR NEED TO RESCHEDULE YOU CAN CONTACT THEIR OFFICE AT [phone]. Instructions: Syncope (GEN) Patient Disposition: HOME SELF-CARE Prescriptions: New donepezil [Aricept] 5 mg tablet 5 mg PO DAILY Qty: 30 0RF Continued ascorbic acid (vitamin C) 1,000 MG tablet 1,000 mg PO DAILY atorvastatin [Lipitor] 20 MG tablet 20 mg PO BEDTIME hydrocodone-acetaminophen 1 EACH tablet 1 ea PO DAILY enalapril maleate 20 MG tablet 20 mg PO BID isosorbide mononitrate 30 MG tablet extended release 24 hr 60 mg PO DAILY chlorthalidone 25 MG tablet 25 mg PO DAILY aspirin [Ecotrin Low Strength] 81 MG tablet,delayed release (DR/EC) 81 mg PO DAILY tamsulosin 0.4 MG capsule 0.4 mg PO DAILY omeprazole 20 MG capsule,delayed release(DR/EC) 20 mg PO QDAC multivitamin 1 CAP capsule 1 cap PO DAILY nitroglycerin [Nitrostat] 0.4 MG tablet, sublingual 0.4 mg sublingual Q5M PRN (Reason: chest pain) Changed metoprolol succinate 50 MG tablet extended release 24 hr 25 mg PO BID Qty: 30 0RF Rx Instructions: MAY CUT 50 MG TABLET IN HALF Did you review [place] [employer] [employer] [place] for ALL controlled substances?: Not Applicable Discussed opioids are addictive and Narcan is available by prescription or from pharmacy.: No Condition: Good
--- NOTE | 2022-10-04 11:11 | RS.PTINEVL ---
Subjective Patient information Date of Evaluation: 10/04/22 Date of Arrival on Unit: 10/03/22 Admitted From:: Home Diagnosis: syncope, fall Usual Living Arrangement: Alone Living Arrangement Comments: Pt lives alone, however is and spouse lives in different house. Spouse helps with medications and meals. Home Environment: Mobile Home (motor home), Stairs (few) and Rail Medical History: Hypertension and Arthritis Medical History Comments:: CAD, GERD, BPH, back pain LATEX ALLERGY?: No Surgical History: CABG Medications: see chart Subjective Information/ Patient Comments:: pt states that when he gets up out of bed if he doesn't sit there for a few mins he has a tendency to lose his balance and he has fallen a few times. Nursing reports pt had very unsteady gait while walking to the bathroom. 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, Drive and Participated in Social Activities Outside home Current Level of Function: Partially Dependent Current Equipment Used at Home: NA Interventions Objective Patient Orientation: Person, Place, Time and Situation Current Interventions: IV's Range of Motion ROM Right Upper Extremity AROM: WFL's Left Upper Extremity AROM: WFL's Right Lower Extremity AROM: WFL's Left Lower Extremity AROM: WFL's Muscle Strength Muscle Strength Right Upper Extremity: Normal (5/5) Left Upper Extremity: Normal (5/5) Right Lower Extremity: Mild Weakness (hip flex 4+/5, knee flex/ext 5/5, ankle DF/PF 4+/5) Left Lower Extremity: Mild Weakness (hip flex 4+/5, knee flex/ext 5/5, ankle DF/PF 4+/5) Sensation Sensation Right Upper Extremity: Intact/Normal Left Upper Extremity: Intact/Normal Right Lower Extremity: Intact/Normal Left Lower Extremity: Intact/Normal Palpation Palpation Findings: None/Normal Coordination Tests Bilateral: Finger to Nose: Normal/Intact Heel to Nunez: Normal/Intact Toe Tapping: Normal/Intact Balance Sitting Balance and Reactions Static Sitting Balance: Normal Dynamic Sitting Balance: Normal Standing Balance and Reactions Static Standing Balance: Good Dynamic Standing Balance: Good (good-) Comments Balance Assessment Comments: Tinetti score: 24/28 consistent with low fall risk (however pt has had multiple falls) Functional Mobility Bed Mobility Rolling R/L: Independent Scooting: Independent Sit to Supine: Independent Transfers Sit to Stand: Independent Stand to Sit: Independent Comments:: pt stood at bathroom sink unsupported and washed and dried hands no LOB. Safety Awareness Safety Awareness: Fair SABRINA INDEX SCORE: n/a Ambulation Ambulation Assistive Device Used: Gait belt Orthotic/Prosthetic Device: No Distance: 25ft (pt refused to amb in hallway stating his clothes were dirty) Assistance needed with Ambulation: Supervision Quality of Ambulation: pt with no LOB, no scissoring, no deviation from path Gait Deviations: Forward posture and Short stride Factors Affecting Ambulation: Weakness and Cognitive Status Treatment time Time with patient Length of Evaluation: 22 Total treatment time: 26 Patient Education Education Patient Education: Education of Plan of Care Teaching Recipient: Patient and Family Teaching Methods: Discussion Comments: Discussed with pt and family trying to sit at side of bed and perform AP, LAQ, hand squeezes and possibly cough to decrease orhtostatic hypotension. Assessment Assessment Problem List:: Weakness Rehab Potential: Good Further Therapy Indicated?: No Candidate for Swing Bed for Therapy Services?: pt is not a candidate for swing bed as pt is currently OBS and high level of function Evaluation Complexity: HISTORY: Medium, EXAM OF BODY SYSTEMS: Medium, CLINICAL PRESENTATION: Medium and CLINICAL DECISION MAKING: Medium Patient's Goal(s): I want to go home. Plan Other:: eval only, does not require skilled PT at this time, may benefit from HH PT Frequency of Treatment: One time treatment Duration of Treatment: One Time Treatment Anticipated Discharge Destination: Home (May benefit from HHPT for home safety) Treatment Diagnosis (ICD 10 Codes): h/o falls R 29.6, weakness M62.81, Has the Physician been added for Co-signature?: Yes
--- NOTE | 2022-10-04 12:31 | ECHO2D ---
Date of Exam: 10/04/2022 Ordering Physician: HOSPITALIST/ PCP-DR. THOMAS Room #: 114 Reason for Echo: SYNCOPE, FALLS, WEAKNESS, HX CAD M-Mode Normal Adult Results LV Dimensions Normal Adult Results AoV Opening excursions >1.6 >1.6 LVEDD-base- 3.5-5.8 5.2 Ao root dimensions 2.0-3.7 3.7 LVESD-base- 3.1-4.6 L. Atrium dimensions 1.9-3.8 4.5 Post. Wall thickness 0.8-1.1 1.1 IV septum (thickness) 0.7-1.2 1.1 Post. Wall excursion 0.72-1.3 NORMAL Septal motion 0.2 Systolic motion R. Ventricular cavity 1.5-2.0 NORMAL LVEF 60% 45% Paradoxical septal wall motion NORMAL 2-D : 2-D M Mode Echocardiogram was performed using apical four chamber and left parasternal long and short axis views. Mitral, tricuspid and aortic valves appear to be normal. Contractility of the left ventricle seems to be normal, so is the cavity size. ENLARGED LEFT ATRIAL CAVITY SIZE. Aortic root appears to be normal. There is no pericardial effusion. There is no thrombus noted in the left ventricle or left atrial cavity. HYPOKINETIC SEPTAL WALL COLOR FLOW: MILD MITRAL REGURGITATION M-MODE: MV: NORMAL AV: NORMAL TV: NORMAL PV: CHAMBER SIZE: ENLARGED LEFT ATRIAL CAVITY WALL MOTION: HYPOKINETIC SEPTAL WALL PERICARDIUM: NORMAL INTERPRETATION: 1. BORDERLINE LEFT VENTRICLE HYPERTROPHY WITH ENLARGED LEFT ATRIAL CAVITY 2. HYPOKINETIC SEPTAL WALL WITH EJECTION FRACTION 45% 3. VALVES NORMAL BY 2 "D" "M" MODE MTDD
[2022-10-04 12:32] VITALS: BP 78/44
[2022-10-05] MEDS ORDERED: CHLORTHALIDONE PO SCH (09:00)
--- NOTE | 2022-10-18 08:59 | HOLTER-LT ---
PATIENT INFORMATION AND COMMENTS Attending Physician: SEVERIANO/ DR. REINA THOMAS Indications: SYNCOPE __ Patient Medications: LIPITOR, ASA, ARICEPT, METOPROLOL, ENALAPRIL, TAMSULOSIN, NITRO __ Pre-procedure Summary: Protocol: Standard Heart Rate Started: 10/04/2022 Minimum: 36 BPM Weight: 159 LBS Ended: 10/10/2022 Maximum: 95 BPM Height: 72" Duration: 5 DAYS 12 HRS Average: 54 BPM _ INTERPRETATIONS/OBSERVATIONS: 1. BASIC RHYTHM: SINUS BRADYCARDIA, RATE 36 BPM TO 95 BPM, AVERAGE 54 BPM 2. RARE PVC'S AND PAC'S--ONE RUN OF ATRIAL TACHYCARDIA--5 BEATS 3. NO PAUSES GREATER THAN 2.[address]-T WAVE CHANGES FROM BASELINE 5. NO PATIENT MARKER COUNT MTDD
== END 2022-10-04 14:09 | disposition home or self-care (01) ==
LOC: ED 11:21 → MEDSURG B 11:21
PROVIDERS: ADMIT Hospitalist; ATTEND Physician Assistant
DX: R29.6 Repeated falls; R41.89 Other symptoms and signs involving cognitive functions and awareness; S61.211A Laceration without foreign body of left index finger without damage to nail, initial encounter; R55 Syncope and collapse; I25.10 Atherosclerotic heart disease of native coronary artery without angina pectoris; Z79.899 Other long term (current) drug therapy; D47.2 Monoclonal gammopathy; Y93.9 Activity, unspecified; Z79.01 Long term (current) use of anticoagulants; M79.642 Pain in left hand; Z87.891 Personal history of nicotine dependence; I25.810 Atherosclerosis of coronary artery bypass graft(s) without angina pectoris; N40.0 Benign prostatic hyperplasia without lower urinary tract symptoms; D64.9 Anemia, unspecified; Z87.81 Personal history of (healed) traumatic fracture; R41.81 Age-related cognitive decline; R79.1 Abnormal coagulation profile; W19.XXXA Unspecified fall, initial encounter; Y92.9 Unspecified place or not applicable; R42 Dizziness and giddiness; I10 Essential (primary) hypertension; R53.1 Weakness; M54.9 Dorsalgia, unspecified; S00.93XA Contusion of unspecified part of head, initial encounter; R46.89 Other symptoms and signs involving appearance and behavior; Y99.9 Unspecified external cause status; M19.042 Primary osteoarthritis, left hand; Z51.81 Encounter for therapeutic drug level monitoring; K21.9 Gastro-esophageal reflux disease without esophagitis